=== PATIENT | female | born 1955 | race African-American/Black ===

== ENCOUNTER 2017-11-15 13:58 | Emergency (ER) | payer OTHER ==
[~2017-11-15] VITALS: Ht 162.6 cm; Wt 77.2 kg
[~2017-11-15 13:58] MED LIST: AMITIZA24 MICROGR PO; ANTIVERT25 MG PO; BACLOFEN10 MG PO; BACLOFEN20 MG PO; BACTRIM,SEPT1 TABLE1 PO; BACTRIM,SEPT1 TABLET PO; CALCIUM +D & M1 EACH PO; DEPAKENE250 MG/5 M PO; DILANTIN100 MG PO; LEVSIN-SL0.125 MG SL; LIPITOR80 MG; LIPITOR80 MG PO; LYRICA100 MG PO; Lipitor PO; MECLIZINE HCL25 MG PO; MOTRIN800 MG PO; PHENYTOIN SODI100 M1 PO; PLAVIX75 MG; PLAVIX75 MG PO; POTASSIUM CHLO10 ME3 PO; PROTONIX40 MG PO; TOPAMAX25 MG PO; TRAMADOL HCL50 MG PO; TYLENOL WITH C1 EACH PO; TYLENOL/CODE1 TABLE1; TYLENOL/CODE1 TABLE1 PO; VENTOLIN HFA18 GM IH; ZESTORETIC 20-1 EAC1 NG; ZESTORETIC 20-1 EAC1 PO; ZESTORETIC,P1 TABLE2; ZETIA10 MG PO; Zestoretic,Prinzide PO
[2017-11-15 16:15] VITALS: BP 142/95
== END 2017-11-15 16:25 | disposition home or self-care (01) ==
LOC: EME 13:58
DX: M26.623 Arthralgia of bilateral temporomandibular joint (principal); I10 Essential (primary) hypertension; R73.03 Prediabetes; M79.7 Fibromyalgia; J45.909 Unspecified asthma, uncomplicated; M81.0 Age-related osteoporosis without current pathological fracture; Z86.73 Personal history of transient ischemic attack (TIA), and cerebral infarction without residual deficits; Z88.6 Allergy status to analgesic agent; Z88.8 Allergy status to other drugs, medicaments and biological substances
CPT/HCPCS: 99281; 99283